=== PATIENT | male | born 1960 | race Two or more races ===

== ENCOUNTER 2019-05-06 09:24 | Inpatient (IN) | payer MEDICARE, OTHER ==
[~2019-05-06] VITALS: Ht 167.6 cm; Wt 59.4 kg
--- NOTE | 2019-05-06 09:37 | NUR ---
[facility] from [facility] [phone] escorted patient here and left any questions contact him
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
[2019-05-06 10:01] LABS: BASOPHILS # (AUTO) 0.1 /CMM (0.0-0.2); EOSINOPHILS % (AUTO) 1.9 % (0.0-6.0); HEMATOCRIT 39 % (39-51); HEMOGLOBIN 13.2 g/dL (13.5-17.5); LYMPHOCYTES # (AUTO) 1.5 /CMM (0.8-4.8); LYMPHOCYTES % (AUTO) 13.4 % (20.0-44.0); MEAN CORPUSCULAR HGB CONC 34 g/dl (31.0-36.0); MEAN CORPUSCULAR VOLUME 93 fL (80-96); MONOCYTES # (AUTO) 1.1 /CMM (0.1-1.30); MONOCYTES % (AUTO) 9.9 % (2.0-12.0); NEUTROPHILS # (AUTO) 8.2 /CMM (1.8-8.9); NEUTROPHILS % (AUTO) 73.8 % (43.0-81.0); PLATELET COUNT (AUTO) 521 /CMM (150-450); RED BLOOD CELL COUNT(AUTO) 4.19 MIL/uL (4.5-6.0); WHITE BLOOD COUNT (AUTO) 11.1 K/uL (4.3-11.0)
[2019-05-06 10:10] LABS: CALCIUM, SERUM 9.1 mg/dL (8.5-10.1); CARBON DIOXIDE 28 mmol/L (21-32); CHLORIDE 99 mmol/L (98-107); CREATININE 0.7 mg/dL (0.6-1.3); GLUCOSE 98 mg/dL (74-106); POTASSIUM 4.3 mmol/L (3.5-5.1); SODIUM SERUM 134 mmol/L (136-145); UREA NITROGEN, BLOOD 4 mg/dL (7-18)
[2019-05-06 10:16] LABS: ALANINE AMINOTRANSFERASE 15 U/L (12-78); ALBUMIN 3.3 g/dL (3.4-5.0); ALCOHOL, BLOOD < 3 mg/dL (0-0); ALKALINE PHOSPHATASE 82 U/L (46-116); ASPARTATE AMINOTRANSFERASE 19 U/L (15-37); BILIRUBIN,DIRECT 0.1 mg/dL (0.0-0.2); BILIRUBIN,TOTAL 0.2 mg/dL (0.2-1.0); TOTAL PROTEIN, SERUM 7.6 g/dL (6.4-8.2)
[2019-05-06] MEDS ORDERED: LORA0.5T PO (10:29)
[2019-05-06] MEDS ORDERED: ACET-73 PO (10:29)
[2019-05-06] MEDS ORDERED: LACT20SO4 PO (10:29)
[2019-05-06] MEDS ORDERED: LEVE500T20 PO (10:29)
[2019-05-06] MEDS ORDERED: FOLI1TAB16 PO (10:29)
[2019-05-06] MEDS ORDERED: ASPI-605 PO (10:29)
[2019-05-06] MEDS ORDERED: LACO200T2 PO (10:29)
[2019-05-06] MEDS ORDERED: PANT40TA4 PO (10:29)
[2019-05-06] MEDS ORDERED: BISA10SU11 RC (10:29)
[2019-05-06] MEDS ORDERED: FLUT16SP NS (10:29)
--- NOTE | 2019-05-06 12:45 | NUR ---
called [facility] and spoke to Astrid PHAN and report given.
[2019-05-06 13:00] VITALS: BP 145/86
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
--- NOTE | 2019-05-06 13:00 | NUR ---
transferred patient via [facility] going to Lina LONGORIA RN at bedside to assume care.
[2019-05-06] MEDS ORDERED: ONDANSETRON HCL/PF 4 MG/2 ML VIAL IVP PRN (13:30)
[2019-05-06] MEDS ORDERED: MAG HYDROX/AL HYDROX/SIMETH 30 ML UDC PO PRN (13:30)
[2019-05-06] MEDS ORDERED: Z GUARD REMEDY 2 OZ OINT TP PRN (13:30)
[2019-05-06] MEDS ORDERED: MAGNESIUM HYDROXIDE 30 ML UDC PO PRN (13:30)
[2019-05-06] MEDS ORDERED: ZOLPIDEM TARTRATE 5 MG TABLET PO PRN (13:30)
[2019-05-06] MEDS ORDERED: ACETAMINOPHEN 325 MG TABLET PO PRN (13:30)
[2019-05-06 13:34] LABS: APPEARANCE,URINE CLEAR (CLEAR); BILIRUBIN,URINE NEGATIVE (NEGATIVE); BLOOD, URINE NEGATIVE Ery/uL (NEGATIVE); COLOR,URINE YELLOW (YELLOW); KETONES,URINE NEGATIVE (NEGATIVE); LEUKOCYTE ESTERASE ,URINE NEGATIVE (NEGATIVE); NITRITE, URINE NEGATIVE (NEGATIVE); PROTEIN,URINE NEGATIVE (NEGATIVE); UGLUCOSE NEGATIVE (NEGATIVE); UROBILINOGEN,URINE 0.2 EU/dL (0.2)
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
[2019-05-06 16:00] VITALS: BP 127/76
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
[2019-05-06 20:00] VITALS: BP 131/85
[2019-05-07 04:00] VITALS: BP 123/58
[2019-05-07 06:59] LABS: BASOPHILS # (AUTO) 0.1 /CMM (0.0-0.2); BASOPHILS % (AUTO) 1.1 % (0.0-2.0); EOSINOPHILS % (AUTO) 2.2 % (0.0-6.0); HEMATOCRIT 37 % (39-51); HEMOGLOBIN 12.7 g/dL (13.5-17.5); LYMPHOCYTES # (AUTO) 1.8 /CMM (0.8-4.8); LYMPHOCYTES % (AUTO) 18.6 % (20.0-44.0); MEAN CORPUSCULAR HGB CONC 34 g/dl (31.0-36.0); MEAN CORPUSCULAR VOLUME 93 fL (80-96); MONOCYTES # (AUTO) 1.2 /CMM (0.1-1.30); MONOCYTES % (AUTO) 12.5 % (2.0-12.0); NEUTROPHILS # (AUTO) 6.3 /CMM (1.8-8.9); NEUTROPHILS % (AUTO) 65.6 % (43.0-81.0); PLATELET COUNT (AUTO) 500 /CMM (150-450); RED BLOOD CELL COUNT(AUTO) 3.99 MIL/uL (4.5-6.0); WHITE BLOOD COUNT (AUTO) 9.7 K/uL (4.3-11.0)
--- NOTE | 2019-05-07 07:10 | NUR ---
RN OPENING NOTES PT IS ASLEEP AND BREATHING IS UNLABORED WITH EQUAL CHEST RISE AND FALL, NO OBVIOUS SIGNS OF SOB OR PAIN NOTES AT THIS PRESENT TIME. REPORT RECEIVED FROM MOTION PICTURE FILM EXAMINER NURSE. PER REPORT PT HAS A 20 GAUGE RIGHT INDEX FINGER AND IS ABLE TO AMBULATE. BED IS LOCKED AND IN LOWEST POSITION WITH CALL LIGHT IN PLACE WILL CONTINUE TO MONITOR.
[2019-05-07 07:28] LABS: CALCIUM, SERUM 8.8 mg/dL (8.5-10.1); CREATININE 0.6 mg/dL (0.6-1.3); MAGNESIUM 1.5 mg/dL (1.8-2.4); PHOSPHORUS 3.3 mg/dL (2.5-4.9); POTASSIUM 3.9 mmol/L (3.5-5.1)
[2019-05-07 07:37] LABS: THYROID STIMULATING HORMONE 0.619 uIU/mL (0.358-3.74)
[2019-05-07 08:00] VITALS: BP 123/74
[2019-05-07] MEDS: HYDROCODONE/APAP 5/325MG 1 EACH TABLET PO PRN (09:25)
[2019-05-07] MEDS: Magnesium 1GM/D5W 100ML PREMIX 100 ML IV SCH ×2 (10:31→12:01)
[2019-05-07] MEDS ORDERED: LORAZEPAM INJ 2 MG/ML VIAL IV PRN (12:00)
[2019-05-07] MEDS: LACOSAMIDE 50 MG TABLET PO SCH ×2 (13:00→21:26)
[2019-05-07] MEDS: LEVETIRACETAM SOL (5 ML) 100 MG/ML UDC PO SCH ×2 (13:00→21:26)
[2019-05-07 16:00] VITALS: BP_SYST 154; BP_SYST 157; BP_DIAS 76
[2019-05-07] MEDS: SILVER SULFADIAZINE CREAM 25 GM TUBE TP SCH (16:20)
[2019-05-07] MEDS ORDERED: BISACODYL SUPP (10 MG) 10 MG/SUPP.RECT SUPP.RECT RC PRN (17:00)
[2019-05-07] MEDS ORDERED: LORAZEPAM 0.5 MG TABLET PO SCH (17:00)
[2019-05-07] MEDS: LACTULOSE 10 G/15 ML UDC (PYXIS) PO SCH (17:39)
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
--- NOTE | 2019-05-07 19:30 | NUR ---
RN NOTES RECEIVED PT. PT. AWAKE ON BED, A/OX, AMBULATORY, CONFUSED, DENIES PAIN, NO SOB, CALL LIGHT WITHIN REACH, [id number], CONTINUE TO MONITOR
[2019-05-07 20:00] VITALS: BP 139/69
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
[2019-05-07] MEDS ORDERED: LACOSAMIDE 50 MG TABLET PO SCH (21:00)
[2019-05-08 04:00] VITALS: BP 127/82
--- NOTE | 2019-05-08 06:22 | NUR ---
RN NOTES SLEEPING BUT AROUSABLE, DENIES PAIN, NO SOB, MORNING CARE RENDERED, CALL LIGHT WITHIN REACH, [id number], PT. NEEDS ATTENDED
--- NOTE | 2019-05-08 07:43 | NUR ---
RN OPENING NOTES REPORT RECEIVED FROM PM NURSE. PATIENT IS SLEEPING WITH NO SIGNS OF DISTRESS OR DISCOMFORT. BREATHING IS EVEN AND NON LABORED. PATIENT HAS A 20 G IV ON RIGHT INDEX FINGER. BED IN LOW AND LOCKED POSITION, CALL LIGHT WITHIN REACH. WILL CONTINUE TO MONITOR.
[2019-05-08 08:00] VITALS: BP 132/83
[2019-05-08] MEDS: ASPIRIN EC 81 MG TABLET.DR PO SCH (08:27)
[2019-05-08] MEDS: LEVETIRACETAM SOL (5 ML) 100 MG/ML UDC PO SCH ×2 (08:27→21:47)
[2019-05-08] MEDS: LACOSAMIDE 50 MG TABLET PO SCH ×2 (08:27→21:48)
[2019-05-08] MEDS: PANTOPRAZOLE 40 MG TABLET.DR PO SCH (08:28)
[2019-05-08] MEDS: FOLIC ACID 1 MG TABLET PO SCH (08:28)
[2019-05-08] MEDS: FLUTICASONE PROPIONATE 16 GM BOTTLE NS SCH (08:41)
[2019-05-08] MEDS: SILVER SULFADIAZINE CREAM 25 GM TUBE TP SCH (08:45)
[2019-05-08] MEDS: HYDROCODONE/APAP 5/325MG 1 EACH TABLET PO PRN ×2 (08:49→13:12)
[2019-05-08 10:47] LABS: BASOPHILS # (AUTO) 0.1 /CMM (0.0-0.2); BASOPHILS % (AUTO) 1.1 % (0.0-2.0); EOSINOPHILS % (AUTO) 2.5 % (0.0-6.0); HEMATOCRIT 37 % (39-51); HEMOGLOBIN 12.2 g/dL (13.5-17.5); LYMPHOCYTES # (AUTO) 1.6 /CMM (0.8-4.8); LYMPHOCYTES % (AUTO) 15.5 % (20.0-44.0); MEAN CORPUSCULAR HGB CONC 33 g/dl (31.0-36.0); MEAN CORPUSCULAR VOLUME 93 fL (80-96); MONOCYTES # (AUTO) 1.2 /CMM (0.1-1.30); MONOCYTES % (AUTO) 11.3 % (2.0-12.0); NEUTROPHILS # (AUTO) 7.1 /CMM (1.8-8.9); NEUTROPHILS % (AUTO) 69.6 % (43.0-81.0); PLATELET COUNT (AUTO) 485 /CMM (150-450); RED BLOOD CELL COUNT(AUTO) 3.94 MIL/uL (4.5-6.0); WHITE BLOOD COUNT (AUTO) 10.2 K/uL (4.3-11.0)
[2019-05-08 10:57] LABS: CALCIUM, SERUM 8.4 mg/dL (8.5-10.1); CREATININE 0.5 mg/dL (0.6-1.3); MAGNESIUM 1.5 mg/dL (1.8-2.4); PHOSPHORUS 3.6 mg/dL (2.5-4.9)
[2019-05-08] MEDS ORDERED: Magnesium 1GM/D5W 100ML PREMIX PIGGYBACK IV ONE (12:30)
[2019-05-08] MEDS: Magnesium 1GM/D5W 100ML PREMIX 100 ML IV SCH ×2 (13:09→13:48)
[2019-05-08 16:00] VITALS: BP 140/79
[2019-05-08] MEDS: LACTULOSE 10 G/15 ML UDC (PYXIS) PO SCH (17:57)
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
[2019-05-08 20:00] VITALS: BP 117/92
--- NOTE | 2019-05-08 20:12 | NUR ---
RN MS INITIAL NOTES RECEIVED PATIENT IN BED AWAKE AOX3 WITH NO SIGNS OF DISTRESS OR DISCOMFORT, PER AM RN, WITH EPISODES OF CONFUSION, POSSIBLY D/T DEMENTIA. BREATHING IS EVEN AND NON LABORED. PATIENT HAS A 20 G IV ON RIGHT INDEX FINGER. BED IN LOW AND LOCKED POSITION, CALL LIGHT WITHIN REACH. WILL CONTINUE TO MONITOR.
[2019-05-09 00:07] VITALS: BP 117/92
--- NOTE | 2019-05-09 06:18 | NUR ---
RN MS CLOSING NOTES ENDORSED PATIENT IN BED AWAKE AOX2 WITH NO SIGNS OF DISTRESS OR DISCOMFORT, WITH EPISODES OF CONFUSION, POSSIBLY D/T DEMENTIA. BREATHING IS EVEN AND NON LABORED. PATIENT HAS A 20 G IV ON RIGHT INDEX FINGER. BED IN LOW AND LOCKED POSITION, CALL LIGHT WITHIN REACH. WILL CONTINUE TO MONITOR.
--- NOTE | 2019-05-09 07:30 | NUR ---
RN NOTES RECEIVED PATIENT IN BED, AWAKE, ALERT AND ORIENTEDX2-3, ABLE TO ANSWER APPROPRIATELY BUT ON DELAY, PATIENT WITH NEED TO GRASP FOR WORDS TO EXPRESS SELF. NOT ON ANY FORM OF DISTRESS. ON ROOM AIR. NO SOB NOTED AT THIS TIME. WITH COMPLAINTS OF PAIN, PAIN SCALE OF 10/10 DESCRIBED,GENERALIZED- WILL ADMINISTER DUE MEDICATION FOR PAIN. IV LINE ON THE RIGHT THUMB, IN PLACE, PATENT ON FLUSHING, DRESSING C/D/I. PATIENT ENCOURAGE TO CALL FOR HELP/ ASSISTANCE, CALL LIGHT PLACED WITHIN REACH. SAFETY MEASURES OBSERVED AND MAINTAINED. WILL CONTINUE TO MONITOR PATIENT CLOSELY
[2019-05-09 08:00] VITALS: BP 151/80
[2019-05-09] MEDS: PANTOPRAZOLE 40 MG TABLET.DR PO SCH (08:23)
[2019-05-09] MEDS: FLUTICASONE PROPIONATE 16 GM BOTTLE NS SCH (08:24)
[2019-05-09] MEDS: ASPIRIN EC 81 MG TABLET.DR PO SCH (08:24)
[2019-05-09] MEDS: HYDROCODONE/APAP 5/325MG 1 EACH TABLET PO PRN ×2 (08:25→17:39)
[2019-05-09] MEDS: FOLIC ACID 1 MG TABLET PO SCH (08:25)
[2019-05-09] MEDS: LACOSAMIDE 50 MG TABLET PO SCH ×2 (08:25→21:08)
[2019-05-09] MEDS: LEVETIRACETAM SOL (5 ML) 100 MG/ML UDC PO SCH ×2 (08:27→21:08)
[2019-05-09] MEDS: SILVER SULFADIAZINE CREAM 25 GM TUBE TP SCH (08:29)
[2019-05-09 08:54] LABS: BASOPHILS # (AUTO) 0.1 /CMM (0.0-0.2); BASOPHILS % (AUTO) 1.1 % (0.0-2.0); HEMATOCRIT 43 % (39-51); HEMOGLOBIN 14.5 g/dL (13.5-17.5); LYMPHOCYTES # (AUTO) 1.6 /CMM (0.8-4.8); LYMPHOCYTES % (AUTO) 15.8 % (20.0-44.0); MEAN CORPUSCULAR HGB CONC 34 g/dl (31.0-36.0); MEAN CORPUSCULAR VOLUME 95 fL (80-96); MONOCYTES # (AUTO) 0.7 /CMM (0.1-1.30); MONOCYTES % (AUTO) 7.5 % (2.0-12.0); NEUTROPHILS # (AUTO) 7.3 /CMM (1.8-8.9); NEUTROPHILS % (AUTO) 72.6 % (43.0-81.0); PLATELET COUNT (AUTO) 499 /CMM (150-450); RED BLOOD CELL COUNT(AUTO) 4.58 MIL/uL (4.5-6.0)
[2019-05-09 09:03] LABS: CHOLESTEROL 190 mg/dL (<200); HDL CHOLESTEROL 48 mg/dL (40-60); LDL 116 mg/dL (0-99); TRIGLYCERIDES 141 mg/dL (30-150)
[2019-05-09 09:10] LABS: CALCIUM, SERUM 9.5 mg/dL (8.5-10.1); CREATININE 0.7 mg/dL (0.6-1.3); MAGNESIUM 1.7 mg/dL (1.8-2.4); PHOSPHORUS 3.2 mg/dL (2.5-4.9); POTASSIUM 3.9 mmol/L (3.5-5.1)
[2019-05-09 16:00] VITALS: BP 151/79
[2019-05-09] MEDS: LACTULOSE 10 G/15 ML UDC (PYXIS) PO SCH (17:22)
--- NOTE | 2019-05-09 19:03 | NUR ---
RN NOTES ENDORSED FOR CONTINUITY OF CARE. NOT ON ANY FORM OF DISTRESS. NO ACUTE CHANGES WITHIN THE SHIFT. ALL NURSING NEEDS ATTENDED AND MET. SAFETY MEASURES IN PLACE AT ALL TIME. CALL LIGHT PLACED WITHIN REACH
--- NOTE | 2019-05-09 19:19 | NUR ---
RN OPENING NOTES PT IN BED SLEEPING. NOT ON ANY FORM OF DISTRESS. NO ACUTE CHANGES WITHIN THE SHIFT. ALL NURSING NEEDS ATTENDED AND MET. SAFETY MEASURES IN PLACE AT ALL TIME. CALL LIGHT PLACED WITHIN REACH
[2019-05-09] MEDS ORDERED: Magnesium 1GM/D5W 100ML PREMIX 100 ML IV SCH (19:30)
[2019-05-09] MEDS ORDERED: Magnesium 1GM/D5W 100ML PREMIX PIGGYBACK IV ONE (21:00)
[2019-05-10] VITALS: BP 140/70
--- NOTE | 2019-05-10 00:41 | NUR ---
GAVE REPORT TO OMERO.
--- NOTE | 2019-05-10 06:08 | NUR ---
RN MS CLOSING NOTES PT IN BED SLEEPING. NOT IN ANY FORM OF DISTRESS. NO ACUTE CHANGES WITHIN THE SHIFT, WITH BILAT WRIST RESTRAINS RENEWED. ALL NURSING NEEDS ATTENDED AND MET. SAFETY MEASURES IN PLACE AT ALL TIME. CALL LIGHT PLACED WITHIN REACH
[2019-05-10] MEDS: PANTOPRAZOLE 40 MG TABLET.DR PO SCH (07:44)
--- NOTE | 2019-05-10 07:56 | NUR ---
MS RN OPENING NOTES PT RECEIVED IN BED AWAKE, A/O X4, NO SOB OR ACUTE DISTRESS NOTED. NO ACUTE CHANGES REPORTED OVERNIGHT. R FOREARM #20 SL INTACT AND PATENT. BILAT WRIST RESTRAINTS ORDERED BUT NOT CURRENTLY BEING USED. PATIENT COMFORTABLE AND EATING BREAKFAST. ALL NURSING NEEDS ATTENDED AND MET. SAFETY MEASURES IN PLACE AT ALL TIME. BED IN LOW LOCKED POSITION, CALL LIGHT PLACED WITHIN REACH. WILL CONTINUE TO MONITOR.
[2019-05-10 08:00] VITALS: BP 132/87
[2019-05-10] MEDS: FOLIC ACID 1 MG TABLET PO SCH (09:45)
[2019-05-10] MEDS: LEVETIRACETAM SOL (5 ML) 100 MG/ML UDC PO SCH ×2 (09:45→20:48)
[2019-05-10] MEDS: ASPIRIN EC 81 MG TABLET.DR PO SCH (09:45)
[2019-05-10] MEDS: LACOSAMIDE 50 MG TABLET PO SCH ×2 (09:45→20:48)
[2019-05-10] MEDS: SILVER SULFADIAZINE CREAM 25 GM TUBE TP SCH (09:51)
[2019-05-10] MEDS: FLUTICASONE PROPIONATE 16 GM BOTTLE NS SCH (09:51)
[2019-05-10 16:00] VITALS: BP 160/91
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
[2019-05-10] MEDS: HYDROCODONE/APAP 5/325MG 1 EACH TABLET PO PRN (16:23)
[2019-05-10] MEDS: LACTULOSE 10 G/15 ML UDC (PYXIS) PO SCH (17:47)
--- NOTE | 2019-05-10 19:32 | NUR ---
MS RN CLOSING NOTES PATEINT IN BED AWAKE, A/O X 3, NO SOB OR ACUTE DISTRESS NOTED. NO ACUTE CHANGES DURING SHIFT. R FOREARM #20 SL INTACT AND PATENT. WOUND CARE COMPLETED DURING SHIFT. PATIENT IN BED AND COMFORTABLE. ALL NURSING NEEDS ATTENDED AND MET. SAFETY MEASURES IN PLACE AT ALL TIME. BED IN LOW LOCKED POSITION, CALL LIGHT PLACED WITHIN REACH. CARE ENDORSED TO REMOTE SENSING SPECIALIST RN.
--- NOTE | 2019-05-10 19:50 | NUR ---
RN INITIAL NOTES: RECEIVED REPORT FROM ZELALEM PHAN. PT IN BED, AWAKE, A/O X3 ON RA RESPIRATIONS EVEN AND UNLABORED, IV ACCESS PATENT AND FLUSHING WELL, ON HL. RECEIVED NORCO AT 1623, CLAIMED IT'S EFFECTIVE. DRESSING ON THIGH AREA APPEARS TO BE C/D/I. NO ACTIVE BLEEDING NOTED. DISCUSSED PLAN OF CARE TONIGHT. SAFETY PRECAUTIONS FOR FALL INITIATED, CALL LIGHT IN REACH, WILL CONTINUE MONITORING PT.
[2019-05-10 20:00] VITALS: BP 124/83
[2019-05-11 04:00] VITALS: BP 141/58
[2019-05-11 06:29] LABS: BASOPHILS # (AUTO) 0.1 /CMM (0.0-0.2); BASOPHILS % (AUTO) 1.2 % (0.0-2.0); EOSINOPHILS % (AUTO) 3.1 % (0.0-6.0); HEMATOCRIT 39 % (39-51); HEMOGLOBIN 13.3 g/dL (13.5-17.5); LYMPHOCYTES # (AUTO) 1.9 /CMM (0.8-4.8); LYMPHOCYTES % (AUTO) 19.7 % (20.0-44.0); MEAN CORPUSCULAR HGB CONC 34 g/dl (31.0-36.0); MEAN CORPUSCULAR VOLUME 93 fL (80-96); MONOCYTES # (AUTO) 1.3 /CMM (0.1-1.30); MONOCYTES % (AUTO) 13.4 % (2.0-12.0); NEUTROPHILS # (AUTO) 6.1 /CMM (1.8-8.9); NEUTROPHILS % (AUTO) 62.6 % (43.0-81.0); PLATELET COUNT (AUTO) 455 /CMM (150-450); RED BLOOD CELL COUNT(AUTO) 4.23 MIL/uL (4.5-6.0); WHITE BLOOD COUNT (AUTO) 9.8 K/uL (4.3-11.0)
--- NOTE | 2019-05-11 06:31 | NUR ---
rn closing notes: pt in bed, remains a/o x3 with periods of confusion. iv access remains patent and flushing well, on hl. awaiting psych consult-dr oliveira. pt been cooperative and med compliant. safety precautions for fall remains engaged, call light in reach, will endorse to day rn for continuity of care.
[2019-05-11 06:49] LABS: CALCIUM, SERUM 8.9 mg/dL (8.5-10.1); CREATININE 0.5 mg/dL (0.6-1.3); MAGNESIUM 1.5 mg/dL (1.8-2.4); PHOSPHORUS 3.6 mg/dL (2.5-4.9); POTASSIUM 3.9 mmol/L (3.5-5.1)
--- NOTE | 2019-05-11 07:17 | NUR ---
RN MS NOTES: RECEIVED PATIENT AWAKE IN BED IN NO ACUTE SIGN OF DISTRESS. A/O X3,. VERBALLY RESPONSIVE, DENIES PAIN OR ANY DISCOMFORTS AT THIS TIME. ON ROOM AIR, BREATHING EVEN AND UNLABORED. IV HL ON RFA G#20 INTACT AND FLUSHING WELL. SAFETY PRECAUTIONS IN PLACE. BED IN LOWEST LOCKED POSITION WITH SR UP X2. CALL LIGHT IN REACH. WILL CONTINUE TO MONITOR PT ACCORDINGLY.
[2019-05-11] MEDS: PANTOPRAZOLE 40 MG TABLET.DR PO SCH (07:31)
[2019-05-11 08:00] VITALS: BP 115/75
[2019-05-11] MEDS: LEVETIRACETAM SOL (5 ML) 100 MG/ML UDC PO SCH ×2 (08:32→21:58)
[2019-05-11] MEDS: ASPIRIN EC 81 MG TABLET.DR PO SCH (08:36)
[2019-05-11] MEDS: LACOSAMIDE 50 MG TABLET PO SCH ×2 (08:36→21:58)
[2019-05-11] MEDS: FOLIC ACID 1 MG TABLET PO SCH (08:36)
[2019-05-11] MEDS: FLUTICASONE PROPIONATE 16 GM BOTTLE NS SCH (08:37)
[2019-05-11] MEDS: SILVER SULFADIAZINE CREAM 25 GM TUBE TP SCH (08:37)
[2019-05-11] MEDS: Magnesium 1GM/D5W 100ML PREMIX 100 ML IV SCH ×2 (10:18→11:21)
--- NOTE | 2019-05-11 11:22 | NUR ---
RN NOTES PATIENT NOTED WITH LOW LEVEL MAGNESIUM 1.5 TODAY. ADMINISTRED MAGNESIUM 1GM IV X 2 DOSES ORDERED. WILL CONTINUE TO MONITOR
[2019-05-11 16:00] VITALS: BP 132/79
[2019-05-11] MEDS: LACTULOSE 10 G/15 ML UDC (PYXIS) PO SCH (17:46)
--- NOTE | 2019-05-11 18:40 | NUR ---
MS RN CLOSING NOTES: PATIENT AWAKE AND WATCHING TV IN BED. A/O X3, SAME VERBALLY RESPONSIVE. PT NOTED WITH PERIOD OF CONFUSION AND FORGETFULNESS DURING THE DAY, REORIENTED NEEDED. DRESSING ON LEFT LATERAL THIGH C/D/I. ON ROOM AIR, TOLERATING WELL WITH NO SOB NOTED. IV HL ON RFA G#20 INTACT AND FLUSHING WELL. ALL NEEDS AND CARE ATTENDED WELL. SAFETY PRECAUTIONS KEPT IN PLACE. BED IN LOWEST LOCKED POSITION WITH SR UP X2. CALL LIGHT IN REACH. WILL ENDORSE TO REFERENCE ARCHIVIST NURSE FOR ADRYAN.
[2019-05-11] MEDS: RIVASTIGMINE TARTRATE 1.5 MG CAPSULE PO SCH (19:12)
[2019-05-11] MEDS: risperiDONE 0.25 MG TABLET PO SCH (19:13)
[2019-05-11 20:00] VITALS: BP 135/84
[2019-05-11] MEDS: HYDROCODONE/APAP 5/325MG 1 EACH TABLET PO PRN (21:59)
[2019-05-12 04:00] VITALS: BP 105/73
[2019-05-12 07:09] LABS: CALCIUM, SERUM 8.8 mg/dL (8.5-10.1); CREATININE 0.5 mg/dL (0.6-1.3); MAGNESIUM 1.6 mg/dL (1.8-2.4); PHOSPHORUS 3.5 mg/dL (2.5-4.9)
--- NOTE | 2019-05-12 07:15 | NUR ---
RN OPENING NOTES PT IS ASLEEP IN BED. NO SOB OR PAIN OBSERVED AT THIS TIME. REPORT RECEIVED FROM DIRECT MAIL CLERK RN. PT IS ABLE TO AMBULATE ACCORDING TO REPORT. BED IS LOCKED AND IN LOWEST POSITION CALL LIGHT IN REACH WILL CONTINUE TO MONITOR.
[2019-05-12 07:17] LABS: BASOPHILS # (AUTO) 0.1 /CMM (0.0-0.2); BASOPHILS % (AUTO) 1.3 % (0.0-2.0); EOSINOPHILS % (AUTO) 3.5 % (0.0-6.0); HEMATOCRIT 38 % (39-51); HEMOGLOBIN 12.7 g/dL (13.5-17.5); LYMPHOCYTES # (AUTO) 1.8 /CMM (0.8-4.8); LYMPHOCYTES % (AUTO) 21.8 % (20.0-44.0); MEAN CORPUSCULAR HGB CONC 34 g/dl (31.0-36.0); MEAN CORPUSCULAR VOLUME 93 fL (80-96); MONOCYTES # (AUTO) 1.4 /CMM (0.1-1.30); MONOCYTES % (AUTO) 16.4 % (2.0-12.0); NEUTROPHILS # (AUTO) 4.8 /CMM (1.8-8.9); PLATELET COUNT (AUTO) 429 /CMM (150-450); RED BLOOD CELL COUNT(AUTO) 4.04 MIL/uL (4.5-6.0); WHITE BLOOD COUNT (AUTO) 8.4 K/uL (4.3-11.0)
[2019-05-12] MEDS: PANTOPRAZOLE 40 MG TABLET.DR PO SCH (07:54)
[2019-05-12] MEDS: RIVASTIGMINE TARTRATE 1.5 MG CAPSULE PO SCH ×2 (07:54→18:48)
[2019-05-12] MEDS: risperiDONE 0.25 MG TABLET PO SCH ×2 (07:55→18:48)
[2019-05-12 08:00] VITALS: BP 106/75
[2019-05-12 08:34] LABS: BAND % (MANUAL) 4 % (0.0-5.0); EOSINOPHILS % (MANUAL) 4 % (0-4); LYMPHOCYTES % (MANUAL) 17 % (16-48); MONOCYTES % (MANUAL) 10 % (0-11.0); NEUTROPHILS % (MANUAL) 65 (42-76)
[2019-05-12] MEDS: FOLIC ACID 1 MG TABLET PO SCH (09:38)
[2019-05-12] MEDS: LACOSAMIDE 50 MG TABLET PO SCH ×2 (09:38→20:03)
[2019-05-12] MEDS: ASPIRIN EC 81 MG TABLET.DR PO SCH (09:38)
[2019-05-12] MEDS: LEVETIRACETAM SOL (5 ML) 100 MG/ML UDC PO SCH ×2 (09:38→20:03)
[2019-05-12] MEDS: FLUTICASONE PROPIONATE 16 GM BOTTLE NS SCH (09:39)
[2019-05-12] MEDS: SILVER SULFADIAZINE CREAM 25 GM TUBE TP SCH (09:40)
[2019-05-12] MEDS: Magnesium 1GM/D5W 100ML PREMIX 100 ML IV SCH ×2 (11:23→12:34)
[2019-05-12] MEDS: HYDROCODONE/APAP 5/325MG 1 EACH TABLET PO PRN ×2 (14:47→19:59)
[2019-05-12 16:00] VITALS: BP 124/73
[2019-05-12] MEDS: ENSURE ENLIVE 237 ML LIQUID (VANILLA) PO SCH (17:45)
[2019-05-12] MEDS: LACTULOSE 10 G/15 ML UDC (PYXIS) PO SCH (18:00)
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
--- NOTE | 2019-05-12 19:38 | NUR ---
MS RN NOTES RECEIVED PT ON BED. A/O X 4. ON ROOM AIR NO RESPIRATORY DISTRESS NOTED. IV ACCESS ON RIGHT HAND G20 SALINE LOCK, PATENT AND INTACT. HEAD OF BED ELEVATED. SIDE RAILS UP. CALL LIGHT WITHIN REACH. BED ALARM ON. WILL CONTINUE TO MONITOR PT CLOSELY.
[2019-05-12 20:00] VITALS: BP 95/66
[2019-05-12 20:24] VITALS: BP 105/66
[2019-05-13 04:00] VITALS: BP 102/58
--- NOTE | 2019-05-13 05:05 | NUR ---
MS RN NOTES PT REFUSING WOUND CARE. PER PT HE WANTS TO REST.
[2019-05-13] MEDS: risperiDONE 0.25 MG TABLET PO SCH (06:09)
[2019-05-13] MEDS: RIVASTIGMINE TARTRATE 1.5 MG CAPSULE PO SCH (06:09)
--- NOTE | 2019-05-13 07:25 | NUR ---
MS/RN OPENING NOTE PATIENT IN BED IN STABLE CONDITION. A/O X 4. NO SIGNS OF ACUTE DISTRESS. NO COMPLAIN OF PAIN OR DISCOMFORT. ALL NEEDS ATTENDED TO. CALL LIGHT WITHIN REACH. WILL CONTINUE TO MONITOR TO ENSURE SAFETY.
--- NOTE | 2019-05-13 07:27 | NUR ---
MS RN NOTES NO ACUTE CHANGES NOTED DURING THE SHIFT. PROVIDED COMFORT AND SAFETY. WILL ENDORSE TO THE AM NURSE FOR CONTINUITY OF CARE.
[2019-05-13 07:41] LABS: BASOPHILS # (AUTO) 0.1 /CMM (0.0-0.2); BASOPHILS % (AUTO) 0.5 % (0.0-2.0); EOSINOPHILS % (AUTO) 2.4 % (0.0-6.0); HEMATOCRIT 39 % (39-51); LYMPHOCYTES # (AUTO) 1.9 /CMM (0.8-4.8); LYMPHOCYTES % (AUTO) 18.1 % (20.0-44.0); MEAN CORPUSCULAR HGB CONC 33 g/dl (31.0-36.0); MEAN CORPUSCULAR VOLUME 94 fL (80-96); MONOCYTES # (AUTO) 1.5 /CMM (0.1-1.30); MONOCYTES % (AUTO) 14.1 % (2.0-12.0); NEUTROPHILS % (AUTO) 64.9 % (43.0-81.0); PLATELET COUNT (AUTO) 400 /CMM (150-450); RED BLOOD CELL COUNT(AUTO) 4.19 MIL/uL (4.5-6.0); WHITE BLOOD COUNT (AUTO) 10.7 K/uL (4.3-11.0)
[2019-05-13 08:00] VITALS: BP 114/81
[2019-05-13] MEDS: FLUTICASONE PROPIONATE 16 GM BOTTLE NS SCH (08:22)
[2019-05-13] MEDS: LEVETIRACETAM SOL (5 ML) 100 MG/ML UDC PO SCH (08:22)
[2019-05-13] MEDS: SILVER SULFADIAZINE CREAM 25 GM TUBE TP SCH (08:22)
[2019-05-13] MEDS: LACOSAMIDE 50 MG TABLET PO SCH (08:23)
[2019-05-13] MEDS: PANTOPRAZOLE 40 MG TABLET.DR PO SCH (08:23)
[2019-05-13] MEDS: ASPIRIN EC 81 MG TABLET.DR PO SCH (08:23)
[2019-05-13] MEDS: FOLIC ACID 1 MG TABLET PO SCH (08:23)
[2019-05-13] MEDS: ENSURE ENLIVE 237 ML LIQUID (VANILLA) PO SCH ×2 (08:23→17:06)
[2019-05-13] MEDS: HYDROCODONE/APAP 5/325MG 1 EACH TABLET PO PRN (08:37)
[2019-05-13 08:50] LABS: CALCIUM, SERUM 9.1 mg/dL (8.5-10.1); CREATININE 0.6 mg/dL (0.6-1.3); MAGNESIUM 1.5 mg/dL (1.8-2.4); PHOSPHORUS 3.7 mg/dL (2.5-4.9); POTASSIUM 4.4 mmol/L (3.5-5.1)
[2019-05-13 09:09] LABS: BAND % (MANUAL) 1 % (0.0-5.0); EOSINOPHILS % (MANUAL) 3 % (0-4); LYMPHOCYTES % (MANUAL) 15 % (16-48); MONOCYTES % (MANUAL) 13 % (0-11.0); NEUTROPHILS % (MANUAL) 68 (42-76)
--- NOTE | 2019-05-13 09:34 | NUR ---
MS/RN PER ORDER VIMPAT 200MG ORDERED FOR 0900, BUT UPON TAKING OUT THE MEDICATION FROM [facility], PULLED OUT ONLY 2 TABS OF 50MG. LATER WENT BACK AND PULLED ANOTHER 2 TABS OF 50MG TO COMPLETE THE DOSE OF VIMPAT 200MG. THEREFORE DISCREPENCY OCCURED. CHARGE NURSE CHRISTINA AWARE CYCLE COUNT AND INVENTORY FOR VIMPAT AND WAS COUNTED VIMPAT 50MG 2 TABS STILL IN THE OMNICELL. PHARM. KEVIN AWARE.
[2019-05-13] MEDS: Magnesium 1GM/D5W 100ML PREMIX 100 ML IV SCH ×2 (11:21→12:25)
[2019-05-13] MEDS ORDERED: LACO50TA2 PO (13:21)
[2019-05-13] MEDS ORDERED: RISP0.253 PO (13:21)
[2019-05-13] MEDS ORDERED: Rivastigmine Tartrate PO (13:21)
[2019-05-13] MEDS ORDERED: LEVE100S PO (13:21)
[2019-05-13] MEDS: LACTULOSE 10 G/15 ML UDC (PYXIS) PO SCH (17:15)
--- NOTE | 2019-05-13 18:55 | NUR ---
MS/RN PATIENT SCHEDULE FOR DISCHARGE TODAY AT TO [facility], REPORT GIVEN TO GABE PHAN FROM FACILITY . ACCOUNT MAINTENANCE REPRESENTATIVE AT 1830, TRANSPORTATION STILL NOT AVAILABLE, SPOKE WITH OLIVIA NAVARRO PER OLIVIA SHE WILL CALL AMBULANCE. WILL ENDORSE TO NEXT SHIFT RN FOR ANY ADRYAN.
--- NOTE | 2019-05-13 18:57 | NUR ---
MS/RN PATIENT DISCHARGE TO [facility] IN STABLE CONDITION. A/O X 2-3 WITH EPISODES OF FORGETFULNESS. NO SIGNS OF ACUTE DISTRESS. NO COMPLAIN OF PAIN OR DISCOMFORT. DISCHARGE EDUCATION AND TEACHINGS PROVIDED, ABLE TO COMPREHEND BUT FORGETFUL. UNABLE VERBALIZE UNDERSTANDINGS OF TEACHINGS. REPORT GIVEN TO EMILIE CUMMINGS FROM THE FACILITY. ALL NEEDS ATTENDED TO. NAME BAND AND IV LINE REMOVED. LEFT IN STABLE CONDITION ACCOMPANIED BY 2 ACCESS ASSOC VIA ANNE-MARIE.
== END 2019-05-13 19:10 | DRG 640 ==
LOC: ER 09:33 → TELE1 12:12 → MEDSG1 13:17 → UNDODISIN 17:58
PROVIDERS: ADMIT Student in an Organized Health Care Education/Training Program; ATTEND Family Medicine
DX: E87.8 Other disorders of electrolyte and fluid balance, not elsewhere classified (principal); G92 Toxic encephalopathy; E44.1 Mild protein-calorie malnutrition; E87.1 Hypo-osmolality and hyponatremia; J32.0 Chronic maxillary sinusitis; E88.09 Other disorders of plasma-protein metabolism, not elsewhere classified; F29 Unspecified psychosis not due to a substance or known physiological condition; F03.90 Unspecified dementia, unspecified severity, without behavioral disturbance, psychotic disturbance, mood disturbance, and anxiety; D72.829 Elevated white blood cell count, unspecified; D64.9 Anemia, unspecified; Z86.73 Personal history of transient ischemic attack (TIA), and cerebral infarction without residual deficits; G40.909 Epilepsy, unspecified, not intractable, without status epilepticus; I70.90 Unspecified atherosclerosis; Z68.21 Body mass index [BMI] 21.0-21.9, adult; X10.0XXD Contact with hot drinks, subsequent encounter; S70.922D Unspecified superficial injury of left thigh, subsequent encounter; D47.3 Essential (hemorrhagic) thrombocythemia; E11.9 Type 2 diabetes mellitus without complications; E83.42 Hypomagnesemia; E86.1 Hypovolemia
CPT/HCPCS: 36415; 70450-TC; 71045-TC; 80048-TC; 80061-TC; 80076-TC; 80305; 81000-TC; 82140-TC; 82962-TC; 83735-TC; 84100-TC; 84443-TC; 84484-TC; 85025-TC; 87081-TC; 92526; 92611-TC; 97116-TC; 97530-TC; A6253; A6403; G0378; G0480; J1953; J3475; J7050